=== PATIENT | male | born 2000 | race Caucasian/White ===

== ENCOUNTER 2019-11-12 17:38 | Emergency (ER) | payer SELFPAY ==
[~2019-11-12] VITALS: Ht 177.8 cm; Wt 108.9 kg
[2019-11-12 17:41] VITALS: BP 159/67
--- NOTE | 2019-11-12 17:48 | NUR ---
Patient ambulated to bed 6. RN evaluating patient at bedside.
--- NOTE | 2019-11-12 17:54 | NUR ---
19 Y/O M C/C RIGHT FLANK PAIN RADIATING TO THE RLE, SHARP SENSATION, 7/10 PAIN, ACTIVITY EXARCERBATES, NOTHING ALLEVIATES. DENIES TRAUMA AND TAKE OTC RX. AMBULATORY, A/OX4. NKA. NO HX. NO RX. NO NVD. SIDE RAIL X1.
--- NOTE | 2019-11-12 18:00 | NUR ---
Rasheeda Romero is evaluating the patient at bedside.
[2019-11-12] MEDS ORDERED: KETOROLAC 30 MG/ML VIAL IM ONE (18:05)
[2019-11-12 18:16] VITALS: BP 142/62
== END 2019-11-12 18:17 | disposition home or self-care (01) ==
LOC: MED 17:38
DX: M54.41 Lumbago with sciatica, right side (principal)
CPT/HCPCS: 81002; 96372; 99283; J1885

== ENCOUNTER 2019-11-26 09:35 | Outpatient (CLI) | payer OTHER ==
[2019-11-26 10:05] LABS: BASOPHILS % (AUTO) 0.8 % (0.0-2.0); EOSINOPHILS # (AUTO) 0.1 K/uL (0-0.4); EOSINOPHILS % (AUTO) 1.3 % (0.0-4.0); HEMATOCRIT 46.2 % (36-52); HEMOGLOBIN 15.7 g/dL (12.0-18.0); LYMPHOCYTES # (AUTO) 1.8 K/uL (2.0-11.5); LYMPHOCYTES % (AUTO) 27.5 % (20.5-51.1); MEAN CORPUSCULAR HEMOGLOBIN 30 pg (27-31); MEAN CORPUSCULAR HGB CONC 34 g/dL (33-37); MEAN CORPUSCULAR VOLUME 88.2 fL (80-94); MONOCYTES # (AUTO) 0.6 K/uL (0.8-1.0); MONOCYTES % (AUTO) 9.2 % (1.7-9.3); NEUTROPHILS % (AUTO) 61.2 % (42.2-75.2); PLATELET COUNT (AUTO) 257 K/uL (140-450); RED BLOOD CELL COUNT(AUTO) 5.24 MIL/uL (4.20-6.10); RED CELL DISTRIBUTION WIDTH 13.2 % (11.6-13.7); WHITE BLOOD COUNT (AUTO) 6.5 K/uL (4.8-10.8)
[2019-11-26 10:29] LABS: ALBUMIN 4.2 g/dL (3.4-5.0); ANION GAP 10.8 (8-16); CARBON DIOXIDE 28.7 mmol/L (21-32); CHOL/HDL RATIO 4.1 (1-4.5); CREATININE 1.2 mg/dL (0.6-1.3); POTASSIUM 4.5 mmol/L (3.5-5.1); THYROID STIMULATING HORMONE 0.64 uIU/mL (0.34-3.74); TOTAL BILIRUBIN 0.5 mg/dL (0.0-1.0)
[2019-11-26 11:25] LABS: APPEARANCE,URINE CLEAR (CLEAR); BILIRUBIN,URINE NEGATIVE (NEGATIVE); BLOOD, URINE NEGATIVE (NEGATIVE); COLOR,URINE YELLOW (YELLOW); LEUKOCYTE ESTERASE ,URINE NEGATIVE (NEGATIVE); NITRITE, URINE NEGATIVE (NEGATIVE); UGLUCOSE NEGATIVE (NEGATIVE)
[2019-11-27 08:08] LABS: T4 FREE (DIRECT) 1.31 ng/dL (0.82-1.77)
== END 2019-11-26 17:44 | disposition home or self-care (01) ==
LOC: MLB 09:35
DX: Z13.29 Encounter for screening for other suspected endocrine disorder (principal); Z13.228 Encounter for screening for other metabolic disorders; Z13.21 Encounter for screening for nutritional disorder; Z13.0 Encounter for screening for diseases of the blood and blood-forming organs and certain disorders involving the immune mechanism; Z13.220 Encounter for screening for lipoid disorders
CPT/HCPCS: 36415; 80053; 81003; 82306; 83036; 84439; 84443; 85025

== ENCOUNTER 2019-12-10 11:47 | Outpatient (CLI) | payer OTHER | END 2019-12-10 18:04 | disposition home or self-care (01) | LOC: MLB 11:47 | DX: Z11.3 Encounter for screening for infections with a predominantly sexual mode of transmission (principal) | CPT/HCPCS: 36415; 86592; 86702; 86803 ==